=== PATIENT | male | born 1945 | race Caucasian/White ===

== ENCOUNTER 2019-03-07 11:41 | Emergency (ER) | payer MEDICARE, BC ==
[~2019-03-07] VITALS: Ht 182.9 cm; Wt 93.0 kg
[2019-03-07 12:15] VITALS: BP 152/86
--- NOTE | 2019-03-07 12:26 | ER.PDOC ---
General Chief Complaint: Head Injury Stated Complaint: FALL HEAD INJURY Time seen by MD: 12:22 Source: patient Exam Limitations: no limitations History of Present Illness Occurred: just prior to arrival Where: park Severity: mild Injuries/Pain Location: head, upper extremity Context: Lost Balance Loss of Consciousness: No Loss of Consciousness Modifying Factors: improves with pain medication Associated Symptoms: denies symptoms Past Medical History Surgical History: appendectomy, back, hip Social History Smoking: quit greater than 1 year Alcohol Use: heavy Drug Use: none Reviewed Nursing Reviewed: Vital Signs, Abn. Noted Review of Systems All Other Systems: Reviewed and Negative Physical Exam General Appearance: No Apparent Distress, WD/WN Head: Lacerations Ears, Nose, Mouth, Throat: Hearing Grossly Normal, No Evidence of ENT Injury, No Dental Injury Neck: Non-Tender, Normal Alignment, Nexus criteria neg, Normal Inspection 1 - lac Cardiovascular/Respiratory: Regular Rate, Rhythm, No M/R/G, Normal Peripheral Pulses, No JVD, Normal Breath Sounds, No Respiratory Distress Gastrointestinal: Normal Bowel Sounds, No Organomegaly, No Pulsatile Mass, Non Tender, Soft Back: Normal Inspection, No CVA Tenderness, No Vertebral Tenderness Extremities: No Evidence of Injury, Normal Range of Motion, Non-Tender, No Pedal Edema 1 - bruise 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 NML as Tested, Abnormal talent acquisition relationship manager II-XII Susie Coma Score Susie Total: 15 Incision and Drainage Incision and Drainage : I & D Procedure: betadine prep Results/Orders Results/Orders Orders - TANNER CHAPA MD Ct Head Wo Contrast (03/07/19 12:09) Vital Signs Date Time Temp Pulse Resp B/P (MAP) Pulse Ox O2 Delivery O2 Flow Rate FiO2 03/07/19 12:15 17 03/07/19 12:15 98.2 57 17 152/86 (108) 96 Room Air 03/07/19 11:56 98.2 57 17 03/07/19 11:56 98.2 57 17 96 Room Air Progress Progress lac 2 cm, repaired with prolene 6-0 2 sutures Departure Time of Disposition: 13:00 Disposition: 01 HOME, SELF-CARE Impression: Primary Impression: Laceration Condition: Improved Patient Instructions: Head Injury, Adult, [id number] Referrals: LAURIE STALEY MD (PCP) PRIMARY CARE PROVIDER Duration or Time Spent with Pa: 18 m TANNER CHAPA MD Mar 07, 2019 12:26
--- NOTE | 2019-03-07 12:32 | DIREP ---
PROCEDURE:CT HEAD OR BRAIN W/O CONTRAST COMPARISON:[facility], CT, CT HEAD BRAIN W/O CONTRAST, 05/28/2017, 05:05 PM. INDICATIONS:fall, headache TECHNIQUE:CT images were created without intravenous contrast. FINDINGS: VENTRICLES:The ventricles are normal in size and configuration. CEREBRUM:There are mild low-density changes in the periventricular white matter. CEREBELLUM:Negative. BRAINSTEM:Negative. BASAL CISTERNS:Negative. HEMORRHAGE:No MASS LESION:No ACUTE INFARCT:No SKULL:Normal. SINUSES:Normal. OTHER:None CONCLUSION: 1. No acute abnormalities. 2. Mild microvascular ischemic white matter changes. Dictated by: Bob Myrick M.D. on 03/07/2019 at 12:29 PM
[2019-03-07] MEDS ORDERED: NORCO 7.5MG PO STA (12:34)
[2019-03-07] MEDS ORDERED: LIDOCAINE 1% VIAL ONE (12:38)
[2019-03-07] MEDS ORDERED: BOOSTRIX TDAP IM ONE ×2 (13:00→13:03)
[2019-03-07] MEDS ORDERED: NORCO 7.5MG PO ONE (13:03)
[2019-03-07] MEDS ORDERED: TRIPLE ANTIBIOTIC OINTMENT TP ONE (13:34)
[2019-03-07 13:44] VITALS: BP 152/86
== END 2019-03-07 13:38 | disposition home or self-care (01) ==
LOC: ER 11:41
DX: S01.81XA Laceration without foreign body of other part of head, initial encounter (principal); S50.02XA Contusion of left elbow, initial encounter; Z90.49 Acquired absence of other specified parts of digestive tract; Z98.890 Other specified postprocedural states; Z87.891 Personal history of nicotine dependence; W01.0XXA Fall on same level from slipping, tripping and stumbling without subsequent striking against object, initial encounter; Y93.89 Activity, other specified; Y92.830 Public park as the place of occurrence of the external cause; Y99.8 Other external cause status
CPT/HCPCS: 12011; 70450; 90471; 90715; 99284; J2001

== ENCOUNTER 2022-06-15 18:55 | Emergency (ER) | payer MEDICARE, BC ==
[~2022-06-15] VITALS: Ht 182.9 cm; Wt 90.7 kg
[2022-06-15 20:01] VITALS: BP 207/107
--- NOTE | 2022-06-15 20:08 | NUR ---
Arrival 76 y/o white male ambulatory to ED c/o blocked naidu catheter,
--- NOTE | 2022-06-15 20:30 | NUR ---
Quintero catheter is empting clear yellow urine QS, BP improved pt denies pain.
--- NOTE | 2022-06-15 20:37 | ER.PDOC ---
General Chief Complaint: Requesting Medical Care Stated Complaint: MALE Time seen by MD: 19:10 Source: patient Exam Limitations: no limitations History of Present Illness Initial Comments Patient is a 76-year-old male with a chronic indwelling catheter secondary to a "bad bladder" who comes in because of bladder has not drained since this morning. Patient states that he comes in because of bladder bag has been empty has not drained since this morning he started having suprapubic pain and fullness. Patient states that it is a sore pain made worse with movement palpation and he feels like he needs to urinate but that the Quintero catheter remains empty. Patient is worried that it may be clogged. He has not tried flushing at home. Patient denies any other pain or symptoms at this time Past Medical History Medical History: hypertension Surgical History: back Family History Significant Family History: no pertinent family hx Social History Smoking: non-smoker Alcohol Use: occassionally Drug Use: none Reviewed Nursing Reviewed: Vital Signs, Abn. Noted, Nursing Assessment Review of Systems Constitutional: denies no symptoms reported, denies see HPI, denies chills, denies diaphoresis, denies fever, denies malaise, denies weakness, denies other EENTM: denies no symptoms reported, denies see HPI, denies eye pain, denies blurred vision, denies tearing, denies double vision, denies ear pain, denies ear discharge, denies nose pain, denies nose congestion, denies throat pain, denies throat swelling, denies mouth pain, denies mouth swelling, denies other Respiratory: denies no symptoms reported, denies see HPI, denies cough, denies orthopnea, denies shortness of breath, denies stridor, denies wheezing, denies other Cardiovascular: denies no symptoms reported, denies see HPI, denies chest pain, denies edema, denies palpitations, denies syncope, denies other Gastrointestinal: denies no symptoms reported, denies see HPI, denies abdominal pain, denies constipation, denies diarrhea, denies nausea, denies vomiting, denies other Genitourinary: frequency, pain, urgency Musculoskeletal: denies no symptoms reported, denies see HPI, denies back pain, denies gout, denies joint pain, denies joint swelling, denies muscle pain, denies muscle stiffness, denies neck pain, denies other Skin: denies no symptoms reported, denies see HPI, denies change in color, denies change in hair/nails, denies dryness, denies lesions, denies lumps, denies rash, denies other Psychiatric/Neurological: denies no symptoms reported, denies see HPI, denies anxiety, denies depressed, denies emotional problems, denies headache, denies numbness, denies paresthesia, denies pre-existing deficit, denies seizure, denies tingling, denies tremors, denies weakness, denies other Endocrine: denies no symptoms reported, denies see HPI, denies excessive sweating, denies flushing, denies intolerance to cold, denies intolerance to heat, denies increased hunger, denies increased thrist, denies increased urine, denies unexplained weight gain, denies unexplaned weight loss, denies other Hematologic/Lymphatic: denies no symptoms reported, denies see HPI, denies anemia, denies blood clots, denies easy bleeding, denies easy bruising, denies swollen glands, denies other Physical Exam General Appearance: No Apparent Distress, WD/WN EENT: eyes nml inspection, nml ENT inspection, pharynx nml Neck: nml inspection, non-tender Cardiovascular/Respiratory: Regular Rate, Rhythm (Hypertensive), No M/R/G, Normal Peripheral Pulses, No JVD, Normal Breath Sounds, No Respiratory Distress Abdomen: Normal Bowel Sounds, Soft, No Organomegaly, No Pulsatile Mass, Distended Bladder (Along with suprapubic tenderness to palpation) Male Genitals: Other (Circumcised penis with indwelling catheter no signs of infection or erythema around the meatus) Back: nml inspection Extremities: Normal Range of Motion, Non-Tender, Normal Inspection, No Pedal Edema, No Calf Tenderness, Normal Capillary Refill 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 2034reassessmentbladder bag is now full of 500 and looks like the issue resolved itself before nursing staff could get still flushing it. Patient states that all pain is gone patient is no longer tender to palpation. Quintero is currently working at this time. Will discharge patient he voiced understanding when to follow-up and when to return to the ER ER DEPART Departure Time of Disposition: 20:36 Disposition: 01 HOME / SELF CARE / HOMELESS Impression: Primary Impression: Complication of indwelling urinary catheter Condition: Improved Patient Instructions: Quintero Catheter Care, Adult Referrals: PÉREZ KAMINSKI MD (PCP) PRIMARY CARE PROVIDER Additional Instructions: Please follow-up with your primary care provider within 1 week. If you have any new persistent or worsening symptoms or concerns seek medical attention. Duration or Time Spent with Pa: 30 Problem Qualifiers Primary Impression: Complication of indwelling urinary catheter Device complication type: mechanical Mechanical complication type: other Indwelling urinary catheter type: indwelling urethral catheter Encounter type: initial encounter Qualified Codes: T83.091A - Other mechanical complication of indwelling urethral catheter, initial encounter IAN KELLER MD Jun 15, 2022 20:37
[2022-06-15 20:48] VITALS: BP 179/80
== END 2022-06-15 20:48 | disposition home or self-care (01) ==
LOC: ER 18:55
DX: T83.098A Other mechanical complication of other urinary catheter, initial encounter (principal); F10.20 Alcohol dependence, uncomplicated; I10 Essential (primary) hypertension; Y84.6 Urinary catheterization as the cause of abnormal reaction of the patient, or of later complication, without mention of misadventure at the time of the procedure
CPT/HCPCS: 99281